=== PATIENT | female | born 2005 | race Caucasian/White ===

== ENCOUNTER → 2024-04-14 | Outpatient (CLI) | payer SELFPAY, OTHER ==
--- NOTE | 2024-04-14 13:42 | US_ITS ---
STUDY: ULTRASOUND OF THE FEMALE PELVIS - COMPLETE REASON FOR EXAM: Female, 18 years old. Pelvic and perineal pain LMP: April 07, 2024. TECHNIQUE: Transabdominal TECHNICAL QUALITY: Adequate. COMPARISON: None. FINDINGS: The uterus is anteverted and is in a midline position. The uterus measures 8.3 cm x 5.1 cm x 2.3 cm. Normal uterine cervix. The endometrium measures 4 mm in thickness, and is hyperechoic. There is no demonstrated endometrial mass. There is no demonstrated myometrial mass. I.U.D. - The patient does not have an I.U.D. The right ovary is visualized. The right ovary measures 2.6 cm x 1.7 cm x 2.1 cm. Small follicles are seen. There is no visualized right adnexal mass or complex lesion. There is normal arterial and normal venous vascularity. The left ovary is visualized. The left ovary measures 3.2 cm x 2.4 cm x 1.4 cm. There is no left ovarian cyst or ovarian mass. There is no visualized left adnexal mass or complex lesion. There is normal arterial and normal venous vascularity. There is no fluid in the cul-de-sac. The pre void volume of the bladder was 715 ml. US/Pelvic (Non ) IMPRESSION: Normal female pelvis. Electronically Signed: John Novak MD at 15:11 EDT ,
== END | disposition home or self-care (01) ==
PROVIDERS: PCP Family Medicine
DX: R10.2 Pelvic and perineal pain (principal); N94.6 Dysmenorrhea, unspecified
CPT/HCPCS: 76856